=== PATIENT | female | born 1960 | race Caucasian/White ===

== ENCOUNTER → 2020-07-04 | Day surgery (SDC) | payer OTHER ==
--- NOTE | 2020-07-04 19:24 | RAD REPORT ---
EXAM DESCRIPTION: US - Follow Up Breast Axilla Comp - 07/04/2020 4:22 pm CLINICAL HISTORY: N63.10 COMPARISON: Ultrasounds 2018 and June 2020 FINDINGS: The patient was referred for an ultrasound-guided biopsy of right breast mass. Real-time sonographic evaluation by the technologist and myself demonstrates that the previously suspected mass most likely represents fibroglandular tissue which had the appearance of a pseudo mass. Consequently the biopsy was canceled. IMPRESSION: The previously suspected right breast mass likely represents a focal area of fibroglandular tissue giving the appearance of a pseudo mass. It is recommended that patient have a follow-up right breast ultrasound in 6 months. If there is no change in the appearance of the area in question then no further workup would be recommended. BI-RADS category 3, probably benign ResultCode: PB3 MTDD
== END ==
LOC: DS 09:44
PROVIDERS: ATTEND Nurse Practitioner Family
DX: N63.10 Unspecified lump in the right breast, unspecified quadrant (principal)
CPT/HCPCS: 76641; 76642